=== PATIENT | male | born 1960 | race Caucasian/White ===

== ENCOUNTER → 2024-04-30 10:24 | Outpatient (REF) | payer MEDICARE, SELFPAY ==
[2024-04-30 12:58] LABS: % Basophils 0.6 % (0-2); % Immature Granulocytes 0.1 % (0-0.5); % Lymphocytes 21.8 % (20.5-51.1); % Monocytes 8.3 % (1.7-9.3); % Neutrophils 67.2 % (42.2-75.2); Absolute Eosinophils 0.1 10^3/uL (0-0.7); Absolute Lymphocytes 1.5 10^3/uL (1.2-3.4); Absolute Monocytes 0.6 10^3/uL (0.1-0.6); Absolute Neutrophils 4.6 10^3/uL (1.4-6.5); Hematocrit 40.9 % (39.0-52.0); Hemoglobin 14.2 g/dL (13.0-18.0); Mean Corp Hgb Conc. 34.7 g/dL (33.0-37.0); Mean Corpuscular Hgb 33.5 pg (27.0-31.0); Mean Corpuscular Volume 96.5 fL (80.0-94.0); Mean Platelet Volume 9.7 fL (7.4-10.4); Nucleated Red Blood Cells % 0 % (-); Platelet Count 211 10^3/uL (130-400); Red Blood Cell Count 4.24 10^6/uL (4.70-6.10); Red Cell Dist. Width 12.7 % (11.5-14.5); White Blood Cell Count 6.8 10^3/uL (4.8-10.8)
[2024-04-30 13:49] LABS: ALT (SGPT) 36 U/L (0-50); AST (SGOT) 33 U/L (17-59); Albumin 4.4 g/dl (3.5-5.0); Alkaline Phosphatase 81 U/L (38-126); Blood Urea Nitrogen 15 mg/dl (9-20); Calcium 9.6 mg/dl (8.4-10.2); Carbon Dioxide 26 mmol/L (22-30); Chloride 103 mmol/L (98-107); Glucose 109 mg/dl (70-99); Potassium 4.2 mmol/L (3.5-5.1); Sodium 137 mmol/L (135-145); Total Bilirubin 0.8 mg/dl (0.2-1.3); eGFR > 60.00
[2024-04-30 14:24] LABS: Glycohemoglobin (HgbA1c) 5.6 % (4.0-5.6)
== END ==
LOC: HWLAB 10:24
PROVIDERS: ATTENDING PHYSICIAN Internal Medicine
DX: R73.03 Prediabetes (principal); D75.89 Other specified diseases of blood and blood-forming organs
CPT/HCPCS: 36415; 80053; 83036; 85025

== ENCOUNTER → 2024-12-24 13:18 | Outpatient (REF) | payer MEDICARE, SELFPAY ==
[2024-12-24 15:34] LABS: % Basophils 0.9 % (0-2); % Eosinophils 2.5 % (0-6); % Immature Granulocytes 0.1 % (0-0.5); % Lymphocytes 31.2 % (20.5-51.1); % Monocytes 8.3 % (1.7-9.3); Absolute Basophils 0.1 10^3/uL (0-0.2); Absolute Eosinophils 0.2 10^3/uL (0-0.7); Absolute Lymphocytes 2.1 10^3/uL (1.2-3.4); Absolute Monocytes 0.6 10^3/uL (0.1-0.6); Absolute Neutrophils 3.9 10^3/uL (1.4-6.5); Hematocrit 42.1 % (39.0-52.0); Hemoglobin 14.3 g/dL (13.0-18.0); Mean Corpuscular Hgb 33.3 pg (27.0-31.0); Mean Corpuscular Volume 98.1 fL (80.0-94.0); Mean Platelet Volume 9.4 fL (7.4-10.4); Nucleated Red Blood Cells % 0 % (-); Platelet Count 228 10^3/uL (130-400); Red Blood Cell Count 4.29 10^6/uL (4.70-6.10); Red Cell Dist. Width 12.5 % (11.5-14.5); White Blood Cell Count 6.8 10^3/uL (4.8-10.8)
[2024-12-24 15:42] LABS: Blood Urea Nitrogen 14 mg/dl (9-20); Calcium 9.2 mg/dl (8.4-10.2); Carbon Dioxide 24 mmol/L (22-30); Chloride 101 mmol/L (98-107); Glucose 105 mg/dl (70-99); HDL Cholesterol 68 mg/dl; LDL Cholesterol, Calculated 87 mg/dl; Potassium 4.2 mmol/L (3.5-5.1); Sodium 136 mmol/L (135-145); Total Cholesterol 185 mg/dl (50-199); Triglyceride 150 mg/dl (10-149); Very Low Density Lipoprotein 30 mg/dl (0-30); eGFR > 60.00
[2024-12-24 16:28] LABS: Microalbumin, Random Urine < 0.6 mg/dl (0.6-1.7)
== END ==
LOC: HWLAB 13:18
PROVIDERS: ATTENDING PHYSICIAN Internal Medicine
DX: I10 Essential (primary) hypertension (principal); E78.00 Pure hypercholesterolemia, unspecified
CPT/HCPCS: 36415; 80048; 80061; 82043; 82570; 85025